=== PATIENT | female | born 1955 | race Caucasian/White ===

== ENCOUNTER 2017-06-28 05:40 | Inpatient (IN) | payer MEDICARE, OTHER ==
[~2017-06-28] VITALS: Ht 160 cm; Wt 68.7 kg
[2017-06-28] VITALS (12 sets, daily range): BP systolic 84–160; BP diastolic 44–88
[2017-06-28] MEDS ORDERED: DEXTROSE 50% 25 GM / 50ML DISP.SYRIN. IV PRN (08:45)
[2017-06-28] MEDS: INSULIN ASPART 300 UNITS/3 ML INSULN.PEN SQ SCH ×4 (09:29→21:24)
[2017-06-28 09:45] LABS: BASO # 0.1 x10^3/uL (0.0-0.2); BASO % 1 % (0-3); EOS # 0.1 x10^3/uL (0.0-0.7); EOS % 1 % (0-3); HEMATOCRIT 46.1 % (36.0-47.0); HEMOGLOBIN 15.9 g/dL (12.0-15.5); LYMPH # 2.7 x10^3/uL (1.0-4.8); LYMPH % 29 % (24-48); MEAN CORPUSCULAR HEMOGLOBIN 32 pg (25-35); MEAN CORPUSCULAR HGB CONC 35 g/dL (31-37); MEAN CORPUSCULAR VOLUME 93 fL (79-100); MONO # 0.7 x10^3/uL (0.0-1.1); MONO % 7 % (0-9); NEUT # 5.8 x10^3uL (1.8-7.7); NEUT % 62 % (31-73); PLATELET COUNT 288 x10^3/uL (140-400); RED BLOOD COUNT 4.94 x10^6/uL (3.50-5.40); RED CELL DISTRIBUTION WIDTH 13.7 % (11.5-14.5); WHITE BLOOD COUNT 9.3 x10^3/uL (4.0-11.0)
[2017-06-28 10:11] LABS: ALBUMIN 3.5 g/dL (3.4-5.0); ALBUMIN/GLOBULIN RATIO 0.9 (1.0-1.7); CALCIUM 9.2 mg/dL (8.5-10.1); CREATININE 0.9 mg/dL (0.6-1.0); GFR 63.9; MAGNESIUM 1.3 mg/dL (1.8-2.4); POTASSIUM 3.5 mmol/L (3.5-5.1); TOTAL BILIRUBIN 0.4 mg/dL (0.2-1.0); TOTAL PROTEIN 7.2 g/dL (6.4-8.2)
[2017-06-28] MEDS ORDERED: ROPI1TAB PO (10:49)
[2017-06-28] MEDS ORDERED: INSU100I17 SQ (10:49)
[2017-06-28] MEDS ORDERED: OMEP20TA63 PO (10:49)
[2017-06-28] MEDS ORDERED: LISI40TA PO (10:49)
[2017-06-28] MEDS ORDERED: ASPI325T8 PO (10:49)
[2017-06-28] MEDS ORDERED: FISH12002 PO (10:49)
[2017-06-28] MEDS ORDERED: CHOL500016 PO (10:49)
[2017-06-28] MEDS ORDERED: CARV3.12 PO (10:49)
[2017-06-28] MEDS ORDERED: METF10002 PO (10:49)
[2017-06-28] MEDS ORDERED: INSU100I13 SQ (10:49)
[2017-06-28] MEDS ORDERED: GABA600T2 PO (10:49)
[2017-06-28] MEDS ORDERED: OXYC-323 PO (10:49)
[2017-06-28] MEDS ORDERED: FENO134C PO (10:49)
[2017-06-28] MEDS ORDERED: ATOR40TA PO (11:02)
[2017-06-28 11:03] LABS: BILIRUBIN,URINE NEG (NEG); CLARITY,URINE CLOUDY; COLOR,URINE YELLOW; GLUCOSE,URINE 500 mg/dL (NEG)
[2017-06-28 11:04] LABS: BACTERIA,URINE 0 /HPF (0-FEW); NITRITE,URINE NEG (NEG); RBC,URINE 0 /HPF (0-2); SQUAMOUS EPITHELIAL CELL,UR OCC /LPF; UROBILINOGEN,URINE 0.2 mg/dL (0.2 mg/dL); YEAST,URINE PRESENT /HPF
[2017-06-28] MEDS ORDERED: ENOXAPARIN 40 MG/0.4 ML DISP.SYRIN. SQ SCH (12:00)
[2017-06-28] MEDS: CHOLECALCIFEROL (VITAMIN D3) 1,000 UNIT TABLET PO SCH (12:22)
[2017-06-28] MEDS: PANTOPRAZOLE 40 MG TABLET. PO SCH (12:22)
[2017-06-28] MEDS: OMEGA-3 FATTY ACIDS/FISH OIL 1,000 MG CAPSULE. PO SCH (12:23)
[2017-06-28] MEDS: ASPIRIN 325 MG TABLET PO SCH (12:23)
[2017-06-28] MEDS: CARVEDILOL 3.125 MG TABLET PO SCH ×2 (12:23→21:19)
[2017-06-28] MEDS: LISINOPRIL 20 MG TABLET PO SCH (12:24)
[2017-06-28] MEDS: IPRATRPIUM/ALBUTEROL 0.5/2.5MG 3 ML NEBU. NEB SCH ×3 (12:39→21:38)
[2017-06-28] MEDS ORDERED: MAGNESIUM SULFATE 2GM 50 ML IV ONE (13:00)
[2017-06-28] MEDS ORDERED: FUROSEMIDE 40 MG/4 ML VIAL IVP ONE (13:30)
--- NOTE | 2017-06-28 13:32 | EKG ---
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
[2017-06-28] MEDS: GABAPENTIN 300 MG CAPSULE. PO SCH ×2 (13:58→21:19)
[2017-06-28] MEDS ORDERED: cefTRIAXone IV Push 1 GM VIAL. IVP SCH ×2 (15:30→16:00)
[2017-06-28] MEDS: LORazepam 0.5 MG TABLET PO PRN (16:05)
--- NOTE | 2017-06-28 17:16 | RAD ---
Exam: AP portable chest History: Dyspnea. Comparison: April 10, 2015. Findings: Cardiac silhouette appears within normal limits for size. There is enlargement of the mediastinal contour, similar to previous study. Median sternotomy wires are present. No pneumothorax or large pleural effusion is seen. Pulmonary vascularity appears accentuated. Mild bibasilar densities are seen. Impression: 1. Pulmonary vascularity appears accentuated, suggesting pulmonary vascular congestion. 2. Bibasilar densities, could be atelectasis versus pneumonia. Electronically signed by: Sotero Olson MD (06/28/2017 5:12 PM) [facility]
[2017-06-28] MEDS: metFORMIN 500 MG TABLET PO SCH (17:25)
--- NOTE | 2017-06-28 17:39 | PDOC ---
PROVIDER NOTE PROVIDER NOTE PROVIDER NOTE Reason for consultation elevated troponin History of present illness Piper is a 61-year-old woman with past medical history as noted below who presents to the hospital the setting of chest discomfort and right sided pain. She has history of coronary artery disease status post bypass surgery and fell several weeks ago. She's had worsening pain and she had some pain yesterday which prompted evaluation in the ER. At an outside hospital her troponin was noted to be mildly elevated at 0.7. 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 Arroyo being at [facility] she was to be transferred here. From a purely cardiac standpoint she has not had any significant angina since her surgery. Denies any syncope, palpitations, orthopnea or PND. She reports compliance to medication. Upon initial arrival at the outside hospital her blood pressure was elevated to 174/90. Otherwise she's not had any significant hypertensive episodes. She reports compliance to medications. Pmhx Coronary artery disease status post three-vessel bypass 2. Hypertension 3. Dyslipidemia 4. Diabetes 5. Peripheral vascular disease Social history patient denies any current, tobacco or illicit drug use. Allergies to propoxyphene No significant family history Review systems is negative for 10 out of 14 systems reviewed also otherwise mentioned above in history of present illness. The patient appeared well nourished and normally developed. Head exam is unremarkable. No scleral icterus or corneal arcus noted. Neck is without jugular venous distension, thyromegaly, or carotid bruits. Carotid upstrokes are brisk bilaterally. Lungs are clear to auscultation and percussion. Cardiac exam reveals the PMI to be normally sized and situated. Rhythm is regular. First and second heart sounds normal. No murmurs, rubs or gallops. Abdominal exam reveals normal bowel sounds, no masses, no organomegaly and no aortic enlargement. Extremities are nonedematous. Msk: No traumua Neuro: No focal deficits Vital signs stable Diagnostic studies reviewed: Outside hospital CT scan revealed possible bilateral infiltrate/pneumonitis. There is bilateral pleural effusions. She's currently on Lasix therapy EKG is unremarkable for any acute findings. Repeat cardiac enzymes are notable for an elevation of 0.97. Impression: 1. Chest pain, atypical 2. Non-ST elevation myocardial infarction likely type II but cannot rule out underlying worsening atherosclerosis. 3. Hypertension 4. Dyslipidemia 5. Besxmblvbw-tjxb-wca disease Recommendations: 1. In light of the fact of the patient's troponin is continuing to elevate despite lack of any significant hypertensive episodes or renal failure it would be appropriate to rule out any occult worsening of her coronary disease. We will likely plan for a cardiac catheterization tomorrow when bed is available at [facility]. Thank you for this consultation. JALEESA NORTON MD Jun 28, 2017 17:39
[2017-06-28] MEDS ORDERED: ATORVASTATIN CALCIUM 20 MG TABLET PO SCH (21:00)
[2017-06-28] MEDS ORDERED: INSULIN DETEMIR 300 UNITS/3 ML INSULN.PEN. SQ SCH ×2 (21:00)
[2017-06-28] MEDS: LACTOBACILLUS RHAMNOSUS GG 1 CAPSULE. PO SCH (21:19)
[2017-06-29] MEDS: LORazepam 0.5 MG TABLET PO PRN (00:04)
[2017-06-29 00:24] VITALS: BP 115/64
[2017-06-29 02:16] VITALS: BP 132/90
[2017-06-29 03:46] VITALS: BP 131/68
[2017-06-29 05:08] VITALS: BP 106/78
[2017-06-29 05:45] VITALS: BP 98/47
[2017-06-29] MEDS: IPRATRPIUM/ALBUTEROL 0.5/2.5MG 3 ML NEBU. NEB SCH (06:10)
[2017-06-29 06:30] LABS: HEMATOCRIT 44.5 % (36.0-47.0); HEMOGLOBIN 15.2 g/dL (12.0-15.5); RED BLOOD COUNT 4.76 x10^6/uL (3.50-5.40); RED CELL DISTRIBUTION WIDTH 13.5 % (11.5-14.5); WHITE BLOOD COUNT 9.1 x10^3/uL (4.0-11.0)
[2017-06-29 06:50] LABS: ALBUMIN 3.1 g/dL (3.4-5.0); ALBUMIN/GLOBULIN RATIO 0.9 (1.0-1.7); CALCIUM 9.6 mg/dL (8.5-10.1); CREATININE 0.8 mg/dL (0.6-1.0); GFR 73.2; POTASSIUM 3.6 mmol/L (3.5-5.1); TOTAL BILIRUBIN 0.4 mg/dL (0.2-1.0); TOTAL PROTEIN 6.5 g/dL (6.4-8.2)
[2017-06-29] MEDS: INSULIN ASPART 300 UNITS/3 ML INSULN.PEN SQ SCH (07:30)
[2017-06-29] MEDS: metFORMIN 500 MG TABLET PO SCH (08:00)
[2017-06-29] MEDS: GABAPENTIN 300 MG CAPSULE. PO SCH (08:07)
[2017-06-29] MEDS: PANTOPRAZOLE 40 MG TABLET. PO SCH (08:07)
[2017-06-29] MEDS: LACTOBACILLUS RHAMNOSUS GG 1 CAPSULE. PO SCH (08:07)
[2017-06-29] MEDS: CHOLECALCIFEROL (VITAMIN D3) 1,000 UNIT TABLET PO SCH (08:07)
[2017-06-29] MEDS: ASPIRIN 325 MG TABLET PO SCH (08:07)
[2017-06-29 08:09] LABS: HEMOGLOBIN A1C 9.3 % (4.8-5.6)
[2017-06-29] MEDS: CARVEDILOL 3.125 MG TABLET PO SCH (08:11)
[2017-06-29] MEDS: LISINOPRIL 20 MG TABLET PO SCH (08:11)
[2017-06-29] MEDS: OMEGA-3 FATTY ACIDS/FISH OIL 1,000 MG CAPSULE. PO SCH (08:36)
[2017-06-29] MEDS ORDERED: FUROSEMIDE 40 MG/4 ML VIAL IVP SCH ×2 (09:00)
[2017-06-29] MEDS ORDERED: FENOFIBRATE NANOCRYSTALLIZED 145 MG TABLET PO SCH (09:00)
[2017-06-29 09:07] VITALS: BP 135/79
== END 2017-06-29 08:00 | disposition short-term general hospital (02) | DRG 281 ==
LOC: ICU 05:40
PROVIDERS: ADMIT Internal Medicine; ATTEND Internal Medicine
DX: I21.A1 Myocardial infarction type 2 (principal); J44.1 Chronic obstructive pulmonary disease with (acute) exacerbation; E11.21 Type 2 diabetes mellitus with diabetic nephropathy; E11.40 Type 2 diabetes mellitus with diabetic neuropathy, unspecified; E11.51 Type 2 diabetes mellitus with diabetic peripheral angiopathy without gangrene; I50.9 Heart failure, unspecified; F17.210 Nicotine dependence, cigarettes, uncomplicated; E11.65 Type 2 diabetes mellitus with hyperglycemia; L97.513 Non-pressure chronic ulcer of other part of right foot with necrosis of muscle; I11.0 Hypertensive heart disease with heart failure; R07.89 Other chest pain; E78.5 Hyperlipidemia, unspecified; I25.10 Atherosclerotic heart disease of native coronary artery without angina pectoris; Z91.81 History of falling; Z95.1 Presence of aortocoronary bypass graft; Z88.8 Allergy status to other drugs, medicaments and biological substances; Z90.89 Acquired absence of other organs; Z90.710 Acquired absence of both cervix and uterus; Z93.4 Other artificial openings of gastrointestinal tract status; Z89.431 Acquired absence of right foot; Z83.3 Family history of diabetes mellitus; Z82.49 Family history of ischemic heart disease and other diseases of the circulatory system; Z83.2 Family history of diseases of the blood and blood-forming organs and certain disorders involving the immune mechanism
CPT/HCPCS: 36415; 71045; 80053; 81001; 82553; 82947; 83036; 83735; 84484; 85025; 85027; 87641; 93005; 94640; J0696; J1650; J1815; J1940; J3475; J7620

== ENCOUNTER 2017-12-28 15:52 | Emergency (ER) | payer MEDICARE ==
[~2017-12-28] VITALS: Ht 160 cm; Wt 67.1 kg
[2017-12-28 16:04] VITALS: BP 142/82
[2017-12-28] MEDS ORDERED: INSULIN REGULAR 100 UNIT/ML 3ML VIAL. IV ONE (16:15)
[2017-12-28] MEDS ORDERED: IV NORMAL SALINE 1,000ML 1,000 ML IV ONE ×2 (16:15→17:30)
--- NOTE | 2017-12-28 16:24 | PHYS DOC ---
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 Patient has had some blurry vision and does occasionally bump into things But no recent fever no chest pain no dysuria she does have urinary frequency Review of Systems Review of Systems Constitutional: Denies fever or chills [] Eyes: Denies change in visual acuity, redness, or eye pain [] HENT: Denies nasal congestion or sore throat [] maturia [] Musculoskeletal: Denies back pain or joint pain [] Integument: Denies rash or skin lesions [] Neurologic: Denies headache, focal weakness or sensory changes [] Endocrine: Stop Lantus a while back All other systems were reviewed and found to be within normal limits, except as documented in this note. Current Medications Current Medications Current Medications Medications (Trade) Dose Ordered Sig/Librado Start Time Stop Time Status Last Admin Dose Admin Insulin Human Regular (HumuLIN R VIAL) 10 unit 1X ONCE 12/28/17 16:15 12/28/17 16:16 DC Sodium Chloride 1,000 ml @ 1,000 mls/hr 1X ONCE 12/28/17 16:15 12/28/17 17:14 Allergies Allergies Allergies Coded Allergies Type Severity Reaction Last Updated Verified propoxyphene Allergy Intermediate 06/28/17 Yes Physical Exam Physical Exam Constitutional: Well developed, well nourished, no acute distress, non-toxic appearance. [] HENT: Normocephalic, atraumatic, bilateral external ears normal, oropharynx dry no oral exudates, nose normal. [] Eyes: PERRLA, EOMI, conjunctiva normal, no discharge. [] Neck: Normal range of motion, no tenderness, supple, no stridor. [] Cardiovascular:Heart rate regular rhythm, no murmur [] Lungs & Thorax: Bilateral breath sounds clear to auscultation [] Abdomen: Bowel sounds normal, soft, no tenderness, no masses, no pulsatile masses. [] Skin: Warm, dry, no erythema, no rash. [] Back: No tenderness, no CVA tenderness. [] Extremities: No tenderness, no cyanosis, no clubbing, ROM intact, no edema. [] Neurologic: Alert and oriented X 3, normal motor function, normal sensory function, no focal deficits noted. [] Psychologic: Affect normal, judgement normal, mood normal. [] EKG EKG [] Radiology/Procedures Radiology/Procedures [] Course & Med Decision Making Course & Med Decision Making Pertinent Labs and Imaging studies reviewed. (See chart for details) []Hyperglycemia reviewed the lab work that was just done at the outpatient clinic and there was no anion gap the potassium is 4.5 the creatinine is 1.4 mild bump from baseline of 0.9 in addition to sodium is 127 likely pseudohyponatremia patient receives IV fluids as well as IV insulin in the emergency room and we rechecked her blood sugar and it did come down. advised to see pmd for refill on lantus she probably needs to take it again Patient was given IV fluids in the emergency room as well as a total of 15 units of regular insulin the blood sugar did come down to 310. She remained fairly asymptomatic in the emergency room she said she was actually feeling somewhat better. I did advise her to call her primary care doctor tomorrow to get reinitiated on her insulin. She is agreeable I also encouraged her to have a good healthy protein meal this evening because we did give her a fair amount of insulin. Dragon Disclaimer Dragon Disclaimer This electronic medical record was generated, in whole or in part, using a voice recognition dictation system. Departure Departure: Impression: Primary Impression: Hyperglycemia Disposition: 01 HOME, SELF-CARE Condition: STABLE Referrals: BEVERLY FORD MD (PCP) BUDDY ASENCIO MD Dec 28, 2017 16:24
[2017-12-28] MEDS ORDERED: INSULIN REGULAR 100 UNIT/ML 10ML VIAL. IV ONE (17:30)
[2017-12-28 17:44] LABS: BILIRUBIN,URINE NEG (NEG); CLARITY,URINE CLEAR; COLOR,URINE YELLOW; GLUCOSE,URINE >=1000 mg/dL (NEG); NITRITE,URINE NEG (NEG); UROBILINOGEN,URINE 0.2 mg/dL (0.2 mg/dL)
[2017-12-28 17:51] LABS: BACTERIA,URINE 0 /HPF (0-FEW); RBC,URINE RARE /HPF (0-2); SQUAMOUS EPITHELIAL CELL,UR FEW /LPF; WBC,URINE OCC /HPF (0-4)
== END 2017-12-28 18:07 | disposition home or self-care (01) ==
LOC: ER 15:52
DX: R73.9 Hyperglycemia, unspecified (principal); H53.8 Other visual disturbances; Z88.8 Allergy status to other drugs, medicaments and biological substances
CPT/HCPCS: 81001; 82947; 96374; 96376; 99284; J1815; J7030

== ENCOUNTER → 2017-12-28 | Outpatient (CLI) | payer MEDICARE ==
[~2017-12-28] MED LIST: ASPI325T8 PO; ATOR40TA PO; CARV3.12 PO; CHOL500016 PO; FENO134C PO; FISH12002 PO; GABA600T2 PO; INSU100I13 SQ; INSU100I17 SQ; LISI40TA PO; METF10003 PO; OMEP20TA63 PO; OXYC-323 PO; ROPI1TAB PO
[2017-12-28 14:30] LABS: BASO # 0.1 x10^3/uL (0.0-0.2); BASO % 1 % (0-3); EOS # 0.1 x10^3/uL (0.0-0.7); EOS % 0 % (0-3); HEMATOCRIT 40.8 % (36.0-47.0); HEMOGLOBIN 13.8 g/dL (12.0-15.5); LYMPH # 1.9 x10^3/uL (1.0-4.8); LYMPH % 17 % (24-48); MEAN CORPUSCULAR HEMOGLOBIN 31 pg (25-35); MEAN CORPUSCULAR HGB CONC 34 g/dL (31-37); MEAN CORPUSCULAR VOLUME 92 fL (79-100); MONO # 0.6 x10^3/uL (0.0-1.1); MONO % 5 % (0-9); NEUT # 9.1 x10^3uL (1.8-7.7); NEUT % 77 % (31-73); PLATELET COUNT 318 x10^3/uL (140-400); RED BLOOD COUNT 4.41 x10^6/uL (3.50-5.40); RED CELL DISTRIBUTION WIDTH 12.3 % (11.5-14.5); WHITE BLOOD COUNT 11.8 x10^3/uL (4.0-11.0)
[2017-12-28 14:43] LABS: ALBUMIN 3.5 g/dL (3.4-5.0); ALBUMIN/GLOBULIN RATIO 0.8 (1.0-1.7); CALCIUM 9.7 mg/dL (8.5-10.1); CREATININE 1.4 mg/dL (0.6-1.0); GFR 38.2; MAGNESIUM 1.8 mg/dL (1.8-2.4); POTASSIUM 4.5 mmol/L (3.5-5.1); TOTAL BILIRUBIN 0.5 mg/dL (0.2-1.0); TOTAL PROTEIN 7.8 g/dL (6.4-8.2)
== END | disposition home or self-care (01) ==
LOC: LAB 14:04
PROVIDERS: ATTEND Internal Medicine Cardiovascular Disease
DX: I25.10 Atherosclerotic heart disease of native coronary artery without angina pectoris (principal); E78.5 Hyperlipidemia, unspecified; I13.0 Hypertensive heart and chronic kidney disease with heart failure and stage 1 through stage 4 chronic kidney disease, or unspecified chronic kidney disease; E11.22 Type 2 diabetes mellitus with diabetic chronic kidney disease; I50.9 Heart failure, unspecified; N18.1 Chronic kidney disease, stage 1
CPT/HCPCS: 36415; 80053; 83735; 85025

== ENCOUNTER → 2018-11-30 | Outpatient (CLI) | payer MEDICARE ==
[2018-02-21 12:34] VITALS: BP 130/80
[~2018-11-30] MED LIST changes: -GABA600T2 PO; +GABA600T7 PO; -METF10003 PO; +METF10007 PO; -OXYC-323 PO; +OXYC1TAB15 PO
[2018-11-30 08:25] LABS: BASO % 0 % (0-3); EOS # 0.1 x10^3/uL (0.0-0.7); EOS % 2 % (0-3); HEMOGLOBIN 13.7 g/dL (12.0-15.5); LYMPH # 2.7 x10^3/uL (1.0-4.8); LYMPH % 36 % (24-48); MEAN CORPUSCULAR HEMOGLOBIN 31 pg (25-35); MEAN CORPUSCULAR HGB CONC 34 g/dL (31-37); MEAN CORPUSCULAR VOLUME 90 fL (79-100); MONO # 0.5 x10^3/uL (0.0-1.1); MONO % 6 % (0-9); NEUT # 4.2 x10^3uL (1.8-7.7); NEUT % 56 % (31-73); PLATELET COUNT 351 x10^3/uL (140-400); RED BLOOD COUNT 4.45 x10^6/uL (3.50-5.40); RED CELL DISTRIBUTION WIDTH 12.2 % (11.5-14.5); WHITE BLOOD COUNT 7.6 x10^3/uL (4.0-11.0)
[2018-11-30 08:30] LABS: ALBUMIN 3.5 g/dL (3.4-5.0); CALCIUM 9.5 mg/dL (8.5-10.1); DIRECT BILIRUBIN 0.1 mg/dL (0.0-0.2); GFR 56.2; MAGNESIUM 1.4 mg/dL (1.8-2.4); POTASSIUM 4.2 mmol/L (3.5-5.1); TOTAL BILIRUBIN 0.4 mg/dL (0.2-1.0); TOTAL PROTEIN 7.7 g/dL (6.4-8.2)
[2018-12-01 10:08] LABS: HEMOGLOBIN A1C 9.7 % (4.8-5.6)
== END | disposition home or self-care (01) ==
LOC: LAB 07:44
PROVIDERS: ATTEND Internal Medicine Cardiovascular Disease
DX: I25.10 Atherosclerotic heart disease of native coronary artery without angina pectoris (principal); I10 Essential (primary) hypertension; E11.9 Type 2 diabetes mellitus without complications; R10.9 Unspecified abdominal pain
CPT/HCPCS: 36415; 80048; 80061; 80076; 83036; 83735; 85025

== ENCOUNTER → 2018-12-04 | Outpatient (CLI) | payer MEDICARE ==
[2018-02-21 12:34] VITALS: BP 130/80
--- NOTE | 2018-12-04 09:57 | RAD ---
Examination: Ultrasound abdomen complete HISTORY: History of abdominal pain COMPARISON: None available FINDINGS: The pancreas, aorta, IVC are not well-visualized. Small echogenicity identified within the gallbladder probably a gallstone. The gallbladder wall thickness is within normal limits. The common bile duct measures 7 mm in transverse dimension. The echogenicity liver grossly appears unremarkable. The right lobe of the liver measures 18 cm. The spleen measures 10.6 cm in length. The right kidney is 11.3 cm in length. The left kidney measures 10.9 cm in length. IMPRESSION: 1. Cholelithiasis. Minimal prominent appearing common bile duct. If there is clinical suspicion for common bile duct pathology, consider MRCP for further evaluation. Electronically signed by: Bong Cabrera MD (12/04/2018 9:54 AM) [facility]
== END | disposition home or self-care (01) ==
LOC: US 07:32
PROVIDERS: ATTEND Internal Medicine Cardiovascular Disease
DX: K80.20 Calculus of gallbladder without cholecystitis without obstruction (principal)
CPT/HCPCS: 76700

== ENCOUNTER → 2019-09-14 | Outpatient (CLI) | payer MEDICARE ==
[2018-02-21 12:34] VITALS: BP 130/80
[2019-09-14 11:50] LABS: BASO % 1 % (0-3); EOS # 0.1 x10^3/uL (0.0-0.7); EOS % 1 % (0-3); HEMATOCRIT 36.2 % (36.0-47.0); HEMOGLOBIN 12.3 g/dL (12.0-15.5); LYMPH % 23 % (24-48); MEAN CORPUSCULAR HEMOGLOBIN 31 pg (25-35); MEAN CORPUSCULAR HGB CONC 34 g/dL (31-37); MEAN CORPUSCULAR VOLUME 92 fL (79-100); MONO # 0.5 x10^3/uL (0.0-1.1); MONO % 5 % (0-9); NEUT # 6.1 x10^3uL (1.8-7.7); NEUT % 70 % (31-73); PLATELET COUNT 381 x10^3/uL (140-400); RED BLOOD COUNT 3.95 x10^6/uL (3.50-5.40); RED CELL DISTRIBUTION WIDTH 13.2 % (11.5-14.5); WHITE BLOOD COUNT 8.7 x10^3/uL (4.0-11.0)
[2019-09-14 12:01] LABS: ALBUMIN 3.6 g/dL (3.4-5.0); CALCIUM 9.7 mg/dL (8.5-10.1); GFR 56.2; POTASSIUM 4.6 mmol/L (3.5-5.1); TOTAL BILIRUBIN 0.3 mg/dL (0.2-1.0)
== END ==
LOC: LAB 11:10
PROVIDERS: ATTEND Surgery
DX: K80.20 Calculus of gallbladder without cholecystitis without obstruction (principal)
CPT/HCPCS: 36415; 80048; 82040; 82247; 85025

== ENCOUNTER → 2020-03-17 | Outpatient (CLI) | payer MEDICARE ==
[2018-02-21 12:34] VITALS: BP 130/80
--- NOTE | 2020-03-17 09:06 | RAD ---
Exam: VENOUS LOWER EXT BILATERAL Indication: BLE EDEMA / Spl. Instructions: / History: Technique: Color-flow and pulsed wave duplex ultrasound with compression of venous structures of the bilateral lower extremities. Comparison: None Available. Findings: Eccentric partially occlusive thrombus in the right peroneal vein. Elsewhere throughout the bilateral lower extremities, duplex ultrasound with compression of the deep venous structures from the common femoral vein through the popliteal vein is negative for DVT. The posterior tibial veins are segmentally visualized and patent where seen. Impression: Eccentric partially occlusive thrombus in the right peroneal vein, which could be chronic. Electronically signed by: Alex Knutson MD (03/17/2020 9:03 AM) [id number]
== END ==
LOC: US 08:09
PROVIDERS: ATTEND Internal Medicine Cardiovascular Disease
DX: I82.551 Chronic embolism and thrombosis of right peroneal vein (principal); R60.0 Localized edema
CPT/HCPCS: 93970

== ENCOUNTER → 2020-10-15 | Day surgery (SDC) | payer MEDICARE ==
[~2020-10-15] MED LIST changes: +ACETAMINOPHEN 500 MG TABLET PO PRN; +APIX5TAB3 PO; +ASCO500C PO; +ASPI-630 PO; +BALANCED SALT IRRIG SOLN NO.2 500 ML IO ONE; +BENZONATATE 100 MG CAPSULE. PO PRN; +BRIMONIDINE 0.2% OPHTH SOLUTION 5ML BOTTLE. OS ONE; +CEFUROXIME OPHTH 4 MG/0.4 ML SYRINGE. OS ONE; +CHONDROIT-SOD-HYALURONATE KIT. OS ONE; +GABA-586 PO; +IPRATRPIUM/ALBUTEROL 0.5/2.5MG 3 ML NEBU. NEB PRN; +IV RINGERS SOLUTION,LACTATED 1,000 ML IV SCH; +LIDO/EPI IN BSS OPHTH 2.7 ML SYRINGE. OS ONE; +LIDOCAINE 2% JELLY 6ML IN APPLICATOR. ONE; -LISI40TA PO; +LISI40TA6 PO; +MIDAZOLAM HCL PF 2 MG/2 ML VIAL. IV ONE; +MIDAZOLAM HCL PF 2 MG/2 ML VIAL. ONE; +ONDANSETRON PF 4 MG/2 ML VIAL. IV PRN; +PHENYLEPHRINE 10% OPHTH SOLUTION 5ML BOTTLE. OS PRN; +POVIDONE-IODINE 5% OPHTH SOLUTION 30ML BOTTLE. OS ONE; +POVIDONE-IODINE 5% OPHTH SOLUTION 30ML BOTTLE. OS PRN; +PROPARACAINE 0.5% OPHTH SOLUTION 15ML BOTTLE. OS ONE; +PROPARACAINE 0.5% OPHTH SOLUTION 15ML BOTTLE. OS PRN; +RANO500T2 PO; +prednisoLONE ACETATE 1% OPHTH SUSPENSION 5ML BOTTLE. OS ONE
[2020-10-15] MEDS: KETOROLAC TROMETHAMINE 0.5% OPHTH SOLUTION BOTTLE. OS SCH ×2 (10:33→10:38)
[2020-10-15] MEDS: TOBRAMYCIN 0.3% OPHTH SOLUTION 5ML BOTTLE. OS SCH ×2 (10:33→10:38)
[2020-10-15] MEDS: PHENYLEPHRINE 2.5% OPHTH SOLUTION 2ML BOTTLE. OS SCH ×3 (10:33→10:42)
[2020-10-15] MEDS: TROPICAMIDE 1% OPHTH SOLUTION 15ML BOTTLE. OS SCH ×3 (10:33→10:42)
[2020-10-15] MEDS: POVIDONE-IODINE 5% OPHTH SOLUTION 30ML BOTTLE. OS ONE ×2 (11:56→12:10)
--- NOTE | 2020-10-15 12:11 | PDOC4 ---
SURGEON: Roddy Gomez MD Date of Procedure: 10/15/20 PREOP Diagnosis Visually significant cataract: Left Eye OS POSTOP Diagnosis Same PROCEDURE: Phaco w/ posterior chamber IOL: Left Eye OS ANESTHESIA Deep forniceal periocular 2% Lidocaine jelly Dulce/retro bulbar block with 2% Lidocaine with 0.5% Marcaine DESCRIPTION OF PROCEDURE The risks, benefits, and alternatives were discussed with the patient who elected to proceed. Informed consent was obtained in writing and placed in the chart After anesthetizing the eye topically, the patient was taken to the operating room, and the operative eye was prepped and draped in the usual sterile fashion for ocular surgery. A wire lid speculum was placed. A 1-mm clear corneal paracentesis incision was created with the side-port blade at a position three o'clock hours clockwise from the temporal cornea. Then, 1% non-preserved Lidocaine with epinephrine was injected into the anterior chamber followed by viscoelastic. Cotton-tipped applicators were used to stabilize the globe, and a 2.4 mm keratome was used to create a self-sealing incision in clear cornea at the temporal limbus. The Utrata forceps were used to create a continuous curvilinear capsulorrhexis. Balanced saline solution was injected via cannula beneath the capsulorrhexis edge to hydrodissect the lens nucleus and cortex from the lens capsule. The phacoemulsification handpiece and a chopping instrument were then used to remove the lens nucleus. The remaining epinuclear material and cortex were removed with the irrigation/aspiration handpiece. Visc oelastic was used to re-inflate the lens capsule, and the intraocular lens was injected directly into the capsular bag. The corneal wound edges were hydrated with balanced salt solution on a cannula and the irrigation/aspiration handpiece was used to extract the remaining viscoelastic. Cefuroxime 0.1mg/ml / Vigamox 0.5% was injected into the anterior chamber intracamerally. The wounds were inspected and found to be watertight at an appropriate intraocular pressure. Topical antibiotic drops were placed on the corneal surface. LRI: No If Yes, Number [] [place] [] Length [] degrees Depth [] microns Incision [place]: 180 Toric Lens [place] [] Patch/shield with Maxitrol/Tobradex/Erythromycin ointment: Yes No Co-managed patients/postop examination stable for co-management with referring doctor. EBL EBL: None SPECIMANS COLLECTED Specimens Collected: None RODDY GOMEZ MD October 15, 2020 12:11
[2020-10-15 12:22] VITALS: BP 139/62
== END | disposition home or self-care (01) ==
LOC: SURG 10:03
PROVIDERS: ATTEND Ophthalmology
DX: E11.36 Type 2 diabetes mellitus with diabetic cataract (principal); H25.12 Age-related nuclear cataract, left eye; K21.9 Gastro-esophageal reflux disease without esophagitis; E78.00 Pure hypercholesterolemia, unspecified; I25.10 Atherosclerotic heart disease of native coronary artery without angina pectoris; G62.9 Polyneuropathy, unspecified; I13.0 Hypertensive heart and chronic kidney disease with heart failure and stage 1 through stage 4 chronic kidney disease, or unspecified chronic kidney disease; E11.22 Type 2 diabetes mellitus with diabetic chronic kidney disease; N18.1 Chronic kidney disease, stage 1; I50.9 Heart failure, unspecified; Z79.82 Long term (current) use of aspirin; Z88.8 Allergy status to other drugs, medicaments and biological substances; Z83.3 Family history of diabetes mellitus; Z79.899 Other long term (current) drug therapy; Z98.890 Other specified postprocedural states; Z79.4 Long term (current) use of insulin; Z95.1 Presence of aortocoronary bypass graft; Z90.710 Acquired absence of both cervix and uterus; Z90.89 Acquired absence of other organs; Z91.81 History of falling; Z82.49 Family history of ischemic heart disease and other diseases of the circulatory system; Z83.2 Family history of diseases of the blood and blood-forming organs and certain disorders involving the immune mechanism
CPT/HCPCS: 66984; 82947; J2250; V2632

== ENCOUNTER 2020-12-31 23:42 | Inpatient (IN) | payer MEDICARE ==
[~2020-12-31] VITALS: Ht 167.6 cm; Wt 68.2 kg
[~2020-12-31 23:42] MED LIST changes: -ACETAMINOPHEN 500 MG TABLET PO PRN; -BALANCED SALT IRRIG SOLN NO.2 500 ML IO ONE; -BENZONATATE 100 MG CAPSULE. PO PRN; -BRIMONIDINE 0.2% OPHTH SOLUTION 5ML BOTTLE. OS ONE; -CEFUROXIME OPHTH 4 MG/0.4 ML SYRINGE. OS ONE; -CHONDROIT-SOD-HYALURONATE KIT. OS ONE; -IPRATRPIUM/ALBUTEROL 0.5/2.5MG 3 ML NEBU. NEB PRN; -IV RINGERS SOLUTION,LACTATED 1,000 ML IV SCH; -LIDO/EPI IN BSS OPHTH 2.7 ML SYRINGE. OS ONE; -LIDOCAINE 2% JELLY 6ML IN APPLICATOR. ONE; -MIDAZOLAM HCL PF 2 MG/2 ML VIAL. IV ONE; -MIDAZOLAM HCL PF 2 MG/2 ML VIAL. ONE; -ONDANSETRON PF 4 MG/2 ML VIAL. IV PRN; -PHENYLEPHRINE 10% OPHTH SOLUTION 5ML BOTTLE. OS PRN; -POVIDONE-IODINE 5% OPHTH SOLUTION 30ML BOTTLE. OS ONE; -POVIDONE-IODINE 5% OPHTH SOLUTION 30ML BOTTLE. OS PRN; -PROPARACAINE 0.5% OPHTH SOLUTION 15ML BOTTLE. OS ONE; -PROPARACAINE 0.5% OPHTH SOLUTION 15ML BOTTLE. OS PRN; -prednisoLONE ACETATE 1% OPHTH SUSPENSION 5ML BOTTLE. OS ONE
--- NOTE | 2020-12-31 23:47 | PHYS DOC ---
Past History Past Medical History: Anemia, Angina, Arthritis, Arrhythmia, CHF, Diabetes, Hypertension, Vascular Disease Past Surgical History: Coronary Bypass Surgery Alcohol Use: None Drug Use: None General Adult HPI: HPI: ",, I...can't...get .... Enough... I probably'... Need some... BiPAP......they.. did..that ..,,.,.before... .." .. Patient is a 65 year old female who presents with above hx and complaints of severe dyspnea. Patient only able to speak in 1-2 word phrases because of d yspnea. Patient reports acute onset of dyspnea and chest discomfort tonight. Patient has had previous episodes such such as this due cardiac pulmonary failure and pulmonary edema. Patient denies any recent changes in meds. Normally follows with Dr. Ford as a primary. Has follow- with Dr. Childs for cardiology in past. Patient has past medical history of coronary artery disease with three-vessel bypass. Anemia hypertension, dyslipidemia, diabetes, peripheral vascular disease, and myocardial infarctions. Patient placed on BiPAP shortly after arrival to the emergency department. Which improved her overall comfort and saturations. Patient required pressures 18/10 to achieve adequate tidal volumes. No recent travel or specific ill contacts. No history immunosuppression. Pt. has had Covid vaccination x2 with Moderna completed in August. Review of Systems: Review of Systems: Constitutional: Denies fever or chills Eyes: Denies change in visual acuity HENT: Denies nasal congestion or sore throat Respiratory: Complains of cough or shortness of breath Cardiovascular: Denies chest pain or edema GI: Denies abdominal pain, nausea, vomiting, bloody stools. Recent history diarrhea : Denies dysuria Musculoskeletal: Denies back pain or joint pain Integument: Denies rash Neurologic: Denies headache, focal weakness or sensory changes Endocrine: Denies polyuria or polydipsia Lymphatic: Denies swollen glands Psychiatric: Denies depression or anxiety Family History: Family History: Not currently available due to patient's respiratory failure Current Medications: Current Meds: See nursing for home meds Allergies: Allergies: Allergies Coded Allergies Type Severity Reaction Last Updated Verified propoxyphene Allergy Intermediate 06/28/17 Yes Physical Exam: PE: Constitutional: In acute respiratory distress, in obvious respiratory failure . HENT: Normocephalic, atraumatic, bilateral external ears normal, oropharynx moist, no oral exudates, nose normal. [] Eyes: PERRLA, EOMI, conjunctiva normal, no discharge. [] Neck: Normal range of motion, no tenderness, supple, no stridor. JVD in sitting position Cardiovascular: Tachycardia heart rate regular rhythm, no murmur, PMI to the left Lungs & Thorax: Bilateral breath sounds equal apex with crackles and wheezing throughout on auscultation [] old surgical scar Abdomen: Bowel sounds decreased, soft, no tenderness, no masses, no pulsatile masses. Obese Skin: Warm, diaphoretic, no erythema, no rash. Poor turgor Back: No tenderness, no CVA tenderness. [] Extremities: No tenderness, no cyanosis, no clubbing, ROM intact, ankle edema. No cording appreciated Neurologic: Alert and oriented X 3, moves extremities on request, appears to have distal sensory but decreased and lower limbs, no gross focal deficits noted. [] Psychologic: Affect anxious/panic, judgement appropriate once the airway and ventilation stabilized, mood normal. [] EKG: EKG: My interpretation EKG shows a sinus rhythm at 91 bpm. Does have a occasional premature atrial complexes. Does have an anterior septal changes and abdominal contours. Abnormal EKG time of EKG was 0 07 minutes [] Radiology/Procedures: Radiology/Procedures: [][place] [address] IMAGING REPORT Signed PATIENT: ASHLEY CASANOVA ACCOUNT: [id number] : 1955 LOCATION: ER AGE: 65 SEX: F EXAM STATUS: REG ER ORD. PHYSICIAN: KATIE SYED MD REASON: dyspnea PROCEDURE: PORTABLE CHEST 1V XR CHEST 1V INDICATION: Reason: dyspnea / Spl. Instructions: / History: . COMPARISON STUDY: None. FINDINGS: Lungs: Normal lung volume. The perihilar and basilar heterogeneous opacities. Indistinct central vasculature. Pleura: No pleural effusion or pneumothorax. Heart and Mediastinum: Cardiomegaly. The great vessels of the thorax are normal. Median sternotomy. IMPRESSION: Bilateral perihilar and basilar opacities, probably interstitial edema or infection. Electronically signed by: Caroline Knutson MD (01/01/2021 1:01 AM) [facility] DICTATED AND SIGNED BY: CAROLINE KNUTSON MD DATE: 01/01/21 0059 CC: KATIE SYED MD; BEVERLY FORD MD ~MTH0 0 Heart Score: C/O Chest Pain: Yes HEART Score for Chest Pain: HEART Score for Chest Pain Response (Comments) Value History Moderately Suspicious 1 ECG Nonspecific Repolarizatio 1 Age >45 - < 65 1 Risk Factors 1 or 2 Risk Factors 1 Troponin < Normal Limit 0 Total 4 Risk Factors: Risk Factors: DM, Current or recent (<one month) smoker, HTN, HLP, family history of CAD, obesity. Risk Scores: Score 0 - 3: 2.5% MACE over next 6 weeks - Discharge Home Score 4 - 6: 20.3% MACE over next 6 weeks - Admit for Clinical Observation Score 7 - 10: 72.7% MACE over next 6 weeks - Early Invasive Strategies Course & Med Decision Making: Course & Med Decision Making Pertinent Labs and Imaging studies reviewed. (See chart for details) Critical care 90 minutes Discussed presentation, testing and treatment plan with Dr. Penny. Advised to give her additional 80 mg of Lasix IV, and admit to his service.ICU. Impression: 1. Acute pulmonary edema/CHF-BNP 5151 2. Leukocytosis 11.3 3. Anemia hemoglobin 7.6 4. Diabetes= glucose 219 5. Elevated D-dimer 2.31 6. Elevated lactic acid 3.0 7. Malnutrition albumin 2.3 8. History of coronary artery disease 9. Hx. Diarrhea past week [] Dragon Disclaimer: Dragon Disclaimer: This electronic medical record was generated, in whole or in part, using a voice recognition dictation system. Departure Departure: Referrals: BEVERLY FORD MD (PCP) [place] Disclaimer This chart was dictated in whole or in part using Voice Recognition software in a busy, high-work load, and often noisy Emergency Department environment. It may contain unintended and wholly unrecognized errors or omissions. KATIE SYED MD Dec 31, 2020 23:47
[2021-01-01] VITALS (11 sets, daily range): BP systolic 130–145; BP diastolic 50–69
[2021-01-01] MEDS ORDERED: ASPIRIN CHEWABLE 81 MG TABLET. PO ONE
[2021-01-01] MEDS ORDERED: IPRATRPIUM/ALBUTEROL 0.5/2.5MG 3 ML NEBU. NEB ONE
[2021-01-01] MEDS ORDERED: FUROSEMIDE 40 MG/4 ML VIAL IVP ONE ×2 (00:15→02:30)
--- NOTE | 2021-01-01 01:03 | RAD ---
XR CHEST 1V INDICATION: Reason: dyspnea / Spl. Instructions: / History: . COMPARISON STUDY: None. FINDINGS: Lungs: Normal lung volume. The perihilar and basilar heterogeneous opacities. Indistinct central vasc ulature. Pleura: No pleural effusion or pneumothorax. Heart and Mediastinum: Cardiomegaly. The great vessels of the thorax are normal. Median sternotomy. IMPRESSION: Bilateral perihilar and basilar opacities, probably interstitial edema or infection. Electronically signed by: Alex Knutson MD (01/01/2021 1:01 AM) [facility]
[2021-01-01 01:20] LABS: ALBUMIN 2.5 g/dL (3.4-5.0); CALCIUM 9.5 mg/dL (8.5-10.1); CREATININE 1.2 mg/dL (0.6-1.0); DIRECT BILIRUBIN 0.1 mg/dL (0.0-0.2); GFR 45.2; MAGNESIUM 1.5 mg/dL (1.8-2.4); POTASSIUM 4.7 mmol/L (3.5-5.1); TOTAL BILIRUBIN 0.3 mg/dL (0.2-1.0); TOTAL PROTEIN 7.9 g/dL (6.4-8.2)
[2021-01-01 01:24] LABS: BASO # 0.1 x10^3/uL (0.0-0.2); BASO % 1 % (0-3); EOS # 0.1 x10^3/uL (0.0-0.7); EOS % 1 % (0-3); HEMATOCRIT 23.5 % (36.0-47.0); HEMOGLOBIN 7.6 g/dL (12.0-15.5); LYMPH # 1.1 x10^3/uL (1.0-4.8); LYMPH % 10 % (24-48); MEAN CORPUSCULAR HEMOGLOBIN 28 pg (25-35); MEAN CORPUSCULAR HGB CONC 32 g/dL (31-37); MEAN CORPUSCULAR VOLUME 87 fL (79-100); MONO # 0.8 x10^3/uL (0.0-1.1); MONO % 7 % (0-9); NEUT # 9.3 x10^3uL (1.8-7.7); NEUT % 82 % (31-73); PLATELET COUNT 479 x10^3/uL (140-400); RED BLOOD COUNT 2.71 x10^6/uL (3.50-5.40); RED CELL DISTRIBUTION WIDTH 13.7 % (11.5-14.5); WHITE BLOOD COUNT 11.3 x10^3/uL (4.0-11.0)
[2021-01-01 01:35] LABS: BACTERIA,URINE 0 /HPF (0-FEW); BILIRUBIN,URINE NEG (NEG); CLARITY,URINE CLEAR; COLOR,URINE YELLOW; GLUCOSE,URINE NEG (NEG); NITRITE,URINE NEG (NEG); UROBILINOGEN,URINE 0.2 mg/dL (0.2 mg/dL); WBC,URINE OCC /HPF (0-4)
[2021-01-01] MEDS ORDERED: ONDANSETRON PF 4 MG/2 ML VIAL. IVP PRN (02:30)
[2021-01-01] MEDS ORDERED: ACETAMINOPHEN 325 MG TABLET PO PRN (02:30)
--- NOTE | 2021-01-01 03:45 | NUR ---
Pt admitted from ER to ICU bed 3 via [facility], accompanied by EMS and nursing staff. Pt transferred from [facility] to bed x 3 assist. Pt here for c/o SOA and CHF. Pt was on Bipap in ER, received IV Lasix and feeling much better now. Pt now on 3L NC with O2 Sats 96-99%. Admission assessment completed. Pt A&Ox4, very pleasant and cooperative. Health history and home medications reviewed with pt. Pt with chronic right foot wound, dressing changed & pictures taken and placed in chart. Pt normally is seen by [facility] wound care twice weekly. Wound care consulted, along with CM and Diet. Pt with Terry catheter in place from ER, 750cc of clear yellow urine noted. Pt lives at home with . Pt UTD on Covid vaccine. POC reviewed with pt, understanding verbalized. Call light within reach.
[2021-01-01] MEDS ORDERED: HYDR-2155 PO (04:43)
[2021-01-01] MEDS ORDERED: LISI-517 PO (04:43)
[2021-01-01] MEDS ORDERED: FURO40TA4 PO (04:43)
[2021-01-01] MEDS ORDERED: ZOLP10TA PO (04:43)
[2021-01-01] MEDS ORDERED: AMOX1TAB10 PO (04:43)
[2021-01-01] MEDS ORDERED: OMEP40CA7 PO (04:43)
[2021-01-01] MEDS ORDERED: DICL100G28 TP (04:43)
[2021-01-01] MEDS ORDERED: AMLO-186 PO (04:43)
[2021-01-01] MEDS: IPRATRPIUM/ALBUTEROL 0.5/2.5MG 3 ML NEBU. NEB SCH ×4 (08:00→18:26)
--- NOTE | 2021-01-01 08:58 | HP ---
ADMIT DATE: 01/01/2021 ATTENDING PHYSICIAN: Dr. Penny. CHIEF COMPLAINT: Shortness of breath. HISTORY OF PRESENT ILLNESS: The patient is a 65-year-old female admitted through the ED with worsening dyspnea, orthopnea and shortness of breath for the last several days. She had no recent travel, COVID exposure or fevers. She was given BiPAP, diurese and was doing better. Chest x-ray demonstrated vascular congestion, cephalization of vessels and cardiomegaly. She has known coronary artery disease with previous CABG in 2016, Dr. Johan Goss is her physicians assistant. She was admitted then with an acute exacerbation of congestive heart failure. She does drink quite a bit of fluids at home. She was doing better by the time I saw her. PAST MEDICAL HISTORY: Significant for anemia of chronic disease, coronary artery disease with CABG in 2016 and type 2 diabetes. She also had a leg wound of the right foot that is being managed at the wound care center at [facility]. This has been ongoing since 07/2020. ALLERGIES: SHE HAS ALLERGIES TO PROPOXYPHENE, WHICH IS DARVOCET, WHICH IS NO LONGER AVAILABLE. EXACT REACTION IS UNCLEAR. CURRENT MEDICATIONS: Include amlodipine, amoxicillin, Eliquis 5 mg b.i.d., ascorbic acid, aspirin, Lipitor, Coreg, topical diclofenac, fish oil, Lasix 40 mg daily, Neurontin, hydrocodone, insulin, lisinopril, metformin, omeprazole, Ranexa, and zolpidem at bedtime. SOCIAL HISTORY: She was a smoker up to 7 years ago. She denies any alcohol use. She is and lives with her . Her parents are still alive at age 83 and 84, mom and dad respectively. They are frail with chronic medical issues. REVIEW OF SYSTEMS: Significant for the dyspnea with exertion, orthopnea. She is chronically anemic. Her admission hemoglobin was 7.6 g/dL. No nausea. All other systems reviewed and turned to be negative. PHYSICAL EXAMINATION: GENERAL: When I saw her, this is a pleasant, middle-aged female. INITIAL VITAL SIGNS: Showed a blood pressure of 132/99, pulse is 77 and regular. She was afebrile. Oxygen saturation 99% on 3 liters of oxygen per nasal cannula. HEENT: Head is without trauma. Pupils are reactive. Sclerae nonicteric. Oropharynx is clear. NECK: Supple. LUNGS: Good breath sounds, but she has crackles at the bases. CARDIOVASCULAR: Showed regular heart tones. No gallops. Peripheral pulses are palpable and full. ABDOMEN: Soft. EXTREMITIES: Without edema. NEUROLOGIC: Focally intact. SKIN: Warm and dry. PERTINENT LABORATORY STUDIES: Admission hemoglobin is 7.6 g/dL, white count 11,300. Nonfasting blood sugar 202. The first set of cardiac enzyme was 0.17, second set ____ was slightly above the level, I suspect this is stress demand ischemia. Chest x-ray as noted. ASSESSMENT: 1. A 65-year-old female with acute on chronic congestive heart failure. 2. Known coronary artery disease. 3. Slight elevation of enzymes due to stress demand ischemia. 4. Iron deficiency anemia, in hemodiluted state. 5. Type 2 diabetes. PLAN: 1. Admit to the ICU. 2. Wean down supplemental oxygen. 3. Lasix twice a day ordered. 4. 1200 mL daily fluid restriction. 5. Daily weights. 6. Serial chemistries. 7. Serial CBCs. 8. I think she would benefit with a dose of intravenous Venofer while in the hospital: 9. Diabetic diet. CELINA/SHAR DR: Julia TID: [id number] CC: Hasmukh Francis
[2021-01-01] MEDS ORDERED: DICLOFENAC SODIUM 1% TOPICAL GEL 100GM TUBE. TP PRN (09:00)
[2021-01-01] MEDS ORDERED: IRON SUCROSE COMPLEX 400 MG in IV NORMAL SALINE 250ML 250 ML IV ONE (11:30)
[2021-01-01] MEDS: ASPIRIN CHEWABLE 81 MG TABLET. PO SCH (11:39)
[2021-01-01] MEDS: LISINOPRIL 5 MG TABLET. PO SCH (11:39)
[2021-01-01] MEDS: amLODIPine BESYLATE 5 MG TABLET PO SCH (11:39)
[2021-01-01] MEDS: RANOLAZINE 500 MG TAB.ER.12H PO SCH ×2 (11:40→21:12)
[2021-01-01] MEDS: CARVEDILOL 3.125 MG TABLET PO SCH ×2 (11:40→21:12)
[2021-01-01] MEDS: AMOXICILLIN/K CLAV 500/125MG TABLET. PO SCH ×2 (11:40→21:12)
[2021-01-01] MEDS: ASCORBIC ACID 1,000 MG TABLET PO SCH (11:40)
--- NOTE | 2021-01-01 15:17 | NUR ---
Wound/Ostomy Care Wound Type/Assessment: right plantar foot DFU. Pt is a current pt of [facility] wound care center. Cleansed, assessed and redressed wound. Treatment Recommendations/Plan: Cleanse wound, apply Hydrofera blue, cover with ABD and secure with kerlix. Apply D medigrip. Change dressing every other day and PRN for drainage. Education provided: Pt educated on WC POC and PU prevention. No other wounds noted Offloading surface/device: keep pressure off wound Recommended Referrals/Tests: na Discharge Recommendations for dressings: see above, follow up in [facility]
[2021-01-01] MEDS ORDERED: RIVAROXABAN 10 MG TABLET. PO SCH ×2 (17:00)
[2021-01-01] MEDS: metFORMIN 500 MG TABLET PO SCH (17:47)
--- NOTE | 2021-01-01 18:07 | NUR ---
pt has been A & O x4, pt states she feels better and not as SOA, since getting some fluid off. Pt has been getting an infusion of venofer. Pt has been sleeping quite a bit today in between meals. Dr. Zohaib latif'd home medications, pt now on 1200 cc fluid restriction. Wound care was here as well to check dressing, apparently pt had missed 2 appointments in wound clinic. Will CTM
[2021-01-01] MEDS: ATORVASTATIN CALCIUM 20 MG TABLET PO SCH (21:12)
[2021-01-01] MEDS: ZOLPIDEM 5 MG TABLET. PO PRN (21:12)
[2021-01-01] MEDS: APIXABAN 5 MG TABLET. PO SCH (21:12)
[2021-01-01] MEDS: HYDROcodone/APAP 5/325MG 1 TAB TABLET PO PRN (21:13)
[2021-01-01] MEDS: INSULIN GLARGINE SYRINGE. SQ SCH (21:21)
[2021-01-02] VITALS (9 sets, daily range): BP systolic 121–162; BP diastolic 46–74
--- NOTE | 2021-01-02 06:30 | NUR ---
Pt slept well throughout the night. States she is feeling better this am. pts oxygen dropped into the low 80s in the night, applied 2L NC sats improved to >95%. otherwise status unchanged.
[2021-01-02 06:39] LABS: BASO # 0.1 x10^3/uL (0.0-0.2); BASO % 1 % (0-3); EOS # 0.1 x10^3/uL (0.0-0.7); EOS % 1 % (0-3); LYMPH % 22 % (24-48); MEAN CORPUSCULAR HEMOGLOBIN 29 pg (25-35); MEAN CORPUSCULAR HGB CONC 33 g/dL (31-37); MEAN CORPUSCULAR VOLUME 86 fL (79-100); MONO # 0.7 x10^3/uL (0.0-1.1); MONO % 7 % (0-9); NEUT # 6.3 x10^3uL (1.8-7.7); NEUT % 69 % (31-73); PLATELET COUNT 475 x10^3/uL (140-400); RED BLOOD COUNT 2.79 x10^6/uL (3.50-5.40); RED CELL DISTRIBUTION WIDTH 13.7 % (11.5-14.5); WHITE BLOOD COUNT 9.2 x10^3/uL (4.0-11.0)
[2021-01-02 06:43] LABS: CALCIUM 8.6 mg/dL (8.5-10.1); CREATININE 0.9 mg/dL (0.6-1.0); POTASSIUM 4.8 mmol/L (3.5-5.1)
[2021-01-02] MEDS: metFORMIN 500 MG TABLET PO SCH ×2 (08:21→18:01)
[2021-01-02] MEDS: ASPIRIN CHEWABLE 81 MG TABLET. PO SCH (08:21)
[2021-01-02] MEDS: LISINOPRIL 5 MG TABLET. PO SCH (08:21)
[2021-01-02] MEDS: APIXABAN 5 MG TABLET. PO SCH ×2 (08:22→20:16)
[2021-01-02] MEDS: PANTOPRAZOLE 40 MG TABLET. PO SCH (08:22)
[2021-01-02] MEDS: amLODIPine BESYLATE 5 MG TABLET PO SCH (08:22)
[2021-01-02] MEDS: RANOLAZINE 500 MG TAB.ER.12H PO SCH ×2 (08:23→20:17)
[2021-01-02] MEDS: CARVEDILOL 3.125 MG TABLET PO SCH ×2 (08:23→20:16)
[2021-01-02] MEDS: AMOXICILLIN/K CLAV 500/125MG TABLET. PO SCH ×2 (08:24→20:16)
[2021-01-02] MEDS: ASCORBIC ACID 1,000 MG TABLET PO SCH (09:25)
[2021-01-02] MEDS: LACTOBACILLUS RHAMNOSUS GG 1 CAPSULE. PO SCH ×2 (09:26→20:15)
[2021-01-02] MEDS: HYDROcodone/APAP 5/325MG 1 TAB TABLET PO PRN (18:30)
[2021-01-02] MEDS: ATORVASTATIN CALCIUM 20 MG TABLET PO SCH (20:16)
[2021-01-02] MEDS: ZOLPIDEM 5 MG TABLET. PO PRN (20:16)
[2021-01-02] MEDS: INSULIN GLARGINE SYRINGE. SQ SCH (20:23)
[2021-01-03] MEDS: HYDROcodone/APAP 5/325MG 1 TAB TABLET PO PRN (00:33)
[2021-01-03 02:35] VITALS: BP 140/59
[2021-01-03 05:15] VITALS: BP 151/68
[2021-01-03 05:45] VITALS: BP 143/64
--- NOTE | 2021-01-03 06:40 | PN ---
DATE: 01/02/2021 ATTENDING PHYSICIAN: Dr. Penny. SUBJECTIVE: Breathing better. She is able to sleep better last night. OBJECTIVE FINDINGS: VITAL SIGNS: Blood pressure this morning is 140/70, pulse is 72 and regular. She is afebrile. Weight is down 2 kilograms from admission. HEENT: Head is without trauma. Pupils are reactive. Sclerae nonicteric. Oropharynx is clear. NECK: Supple, no bruits. LUNGS: Clear with good breath sounds. CARDIOVASCULAR: Shows regular heart tones. No gallops. ABDOMEN: Soft. EXTREMITIES: Without edema. Chronic wound on the right foot as noted. PERTINENT LABORATORY STUDIES: Blood sugars have been in the mid 100s. Electrolytes: Potassium is 4.8 mEq per liter. Creatinine 0.9 mg percent. Hemoglobin is up to 8.0 grams, white count 9200. ASSESSMENT: 1. A 65-year-old female with acute on chronic congestive heart failure. 2. Known coronary artery disease with previous coronary artery bypass graft. 3. Slight elevation of cardiac enzymes due to stress demand ischemia. 4. Iron deficiency anemia, slightly improved with intravenous Venofer. 5. Type 2 diabetes with very well controlled sugars. Her last A1c was under 6. PLAN: 1. Continue diuresis b.i.d. 2. Fluid restriction. 3. Daily weights. 4. Serial chemistries. 5. We are weaning her off of supplemental oxygen. 6. Tentative discharge plans for tomorrow or Monday. CELINA/DREW/SHERIE DR: CELINA/simona TID: [id number] CC: Dr. Francis
[2021-01-03 07:17] LABS: BASO % 0 % (0-3); EOS # 0.1 x10^3/uL (0.0-0.7); EOS % 1 % (0-3); HEMATOCRIT 26.1 % (36.0-47.0); HEMOGLOBIN 8.7 g/dL (12.0-15.5); LYMPH % 18 % (24-48); MEAN CORPUSCULAR HEMOGLOBIN 29 pg (25-35); MEAN CORPUSCULAR HGB CONC 33 g/dL (31-37); MEAN CORPUSCULAR VOLUME 86 fL (79-100); MONO % 9 % (0-9); NEUT # 7.9 x10^3uL (1.8-7.7); NEUT % 72 % (31-73); PLATELET COUNT 523 x10^3/uL (140-400); RED BLOOD COUNT 3.04 x10^6/uL (3.50-5.40); RED CELL DISTRIBUTION WIDTH 13.6 % (11.5-14.5)
--- NOTE | 2021-01-03 09:08 | DS ---
DATE OF DISCHARGE: 01/03/2021 ATTENDING PHYSICIAN: Dr. Penny. FINAL DISCHARGE DIAGNOSES: 1. Acute on chronic congestive heart failure, compensated. 2. Coronary artery disease with previous coronary artery bypass and graft. 3. Slight elevation of cardiac enzymes due to stress demand ischemia. No other symptoms. 4. Iron deficiency anemia improved with Venofer. 5. Type 2 diabetes with well controlled sugars. 6. Volume overload due to excess ingestion of fluids. HISTORY AND PHYSICAL: The patient is a 65-year-old female admitted to the ED with increasing dyspnea, shortness of breath, orthopnea and dyspnea at rest. She unfortunately ingest quite a bit of fluids, water, tea, etc. and has volume overload. She has had previous bypass surgery 6 years ago. PHYSICAL EXAMINATION: Please see the dictated note. PERTINENT LABORATORY AND X-RAY STUDIES: Admission hemoglobin was 7.6 g/dL. She was at borderline hemoglobin. She did not warrant transfusion. I did give her a treatment of Venofer 400 mg intravenously, it brought the hemoglobin up to 8.0 and 8.7 g/dL. She tolerated it well. White count was 11,000. Electrolytes: Potassium was replaced to 4.8 mEq, creatinine stable at 0.9 mg percent. Nonfasting blood sugar well controlled 111, 109, and 110 respectively. COURSE IN THE HOSPITAL: The patient was admitted. She was started on intravenous Lasix twice a day along with daily weights, fluid restriction, potassium and magnesium replacement. Low hemoglobin was treated with 1 course of Venofer with prompt improvement, but it also was helped by hemoconcentration from her diuresis. Weights were improved approximately 7-8 pounds of fluid, perhaps more was diuresed. She did well by the fourth hospital day, her vital signs were quite stable. Her BP was 143/64, pulse is regular. She was afebrile and oxygen saturation 93% on room air. She is discharged home with the following slight change in her meds. I increased her Lasix to 80 mg p.o. daily in the morning with instructions to monitor daily weights should the weight go up 1 pound above her dry weight, she can take a second dose in the afternoon. In addition, she will be on K-Dur 20 mEq p.o. daily. She will continue her Eliquis 5 mg b.i.d., amlodipine 5 mg daily, aspirin 81 mg daily, Lipitor 40 mg daily, Coreg 3.125 mg b.i.d., diclofenac gel, hydrocodone p.r.n., insulin Humalog as scheduled, lisinopril 5 mg daily, metformin 1000 mg b.i.d., omeprazole 40 mg daily, Ranexa 500 mg daily, and Ambien 10 mg at bedtime. For now, I recommend that she hold off the Neurontin, which causes dry mouth, fish oil and she is finished with her Augmentin. I suggested a followup visit with her PCP, Dr. Francis in 2 weeks' time for recheck. The patient was then discharged from our hospital in stable condition with explicit instructions for followup care. Total discharge time spent 41 minutes. CELINA/LILIANA DR: Julia TID: [id number] CC: Hasmukh Francis
[2021-01-03] MEDS: ASPIRIN CHEWABLE 81 MG TABLET. PO SCH (09:12)
[2021-01-03] MEDS: PANTOPRAZOLE 40 MG TABLET. PO SCH (09:13)
[2021-01-03] MEDS: LACTOBACILLUS RHAMNOSUS GG 1 CAPSULE. PO SCH (09:19)
[2021-01-03] MEDS: CARVEDILOL 3.125 MG TABLET PO SCH (09:19)
[2021-01-03] MEDS: RANOLAZINE 500 MG TAB.ER.12H PO SCH (09:19)
[2021-01-03] MEDS: AMOXICILLIN/K CLAV 500/125MG TABLET. PO SCH (09:20)
[2021-01-03] MEDS: metFORMIN 500 MG TABLET PO SCH (09:20)
[2021-01-03] MEDS: LISINOPRIL 5 MG TABLET. PO SCH (09:21)
[2021-01-03] MEDS: APIXABAN 5 MG TABLET. PO SCH (09:21)
[2021-01-03 09:27] VITALS: BP 143/64
[2021-01-03] MEDS: ASCORBIC ACID 1,000 MG TABLET PO SCH (09:27)
[2021-01-03] MEDS: amLODIPine BESYLATE 5 MG TABLET PO SCH (09:27)
--- NOTE | 2021-01-03 10:30 | NUR ---
PT SIGNED D/C PAPERWORK. DR. MURILLO AT BEDSIDE DISCUSSING D/C. PT AGREES; STATES SHE WILL FOLLOW UP WITH PCP. PT'S IV WAS D/C'D. PT WAS SENT HOME WITH SCRIPT FOR K-DUR 20 MEQ & LASIX 80 MG DAILY. PT WAS WHEELED OUT TO THE FRONT DOOR WHERE HER RIDE CAME AND GOT HER.
--- NOTE | 2021-01-04 13:37 | EKG ---
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
== END 2021-01-03 10:30 | disposition home or self-care (01) | DRG 291 ==
LOC: ER 23:42 → ICU 01-01 02:29 → ER 01-01 03:08 → 1 SOUTH 01-03 06:30
PROVIDERS: ADMIT Hospitalist; ATTEND Hospitalist
PROC: 5A09357 Assistance with Respiratory Ventilation, Less than 24 Consecutive Hours, Continuous Positive Airway Pressure (ICD-10-PCS; principal; 2021-01-01)
DX: I11.0 Hypertensive heart disease with heart failure (principal); E43 Unspecified severe protein-calorie malnutrition; D63.8 Anemia in other chronic diseases classified elsewhere; D72.829 Elevated white blood cell count, unspecified; E11.51 Type 2 diabetes mellitus with diabetic peripheral angiopathy without gangrene; I50.23 Acute on chronic systolic (congestive) heart failure; E78.5 Hyperlipidemia, unspecified; I25.10 Atherosclerotic heart disease of native coronary artery without angina pectoris; Z79.01 Long term (current) use of anticoagulants; Z79.82 Long term (current) use of aspirin; Z79.84 Long term (current) use of oral hypoglycemic drugs; Z79.899 Other long term (current) drug therapy; Z87.891 Personal history of nicotine dependence; Z95.1 Presence of aortocoronary bypass graft; M19.90 Unspecified osteoarthritis, unspecified site; Z68.24 Body mass index [BMI] 24.0-24.9, adult
CPT/HCPCS: 36415; 71045; 80048; 80076; 81001; 82550; 82803; 82947; 83605; 83690; 83735; 83880; 84443; 84484; 85025; 85379; 85610; 85730; 87040; 87205; 93005; 94640; 94660; 96374; 96375; 96376; 99292; J1756; J1815; J1940; J2405; J7050; 99291-25

== ENCOUNTER 2021-11-01 11:01 | Emergency (ER) | payer MEDICARE ==
[~2021-11-01] VITALS: Ht 167.6 cm; Wt 75.7 kg
[~2021-11-01 11:01] MED LIST changes: +AMLO-186 PO; +AMOX1TAB10 PO; +DICL100G28 TP; -FENO134C PO; +FENO134C21 PO; +FURO40TA4 PO; +HYDR-2155 PO; +LISI5TAB15 PO; +OMEP40CA7 PO; +ZOLP10TA PO
--- NOTE | 2021-11-01 11:13 | PHYS DOC ---
Past History Past Medical History: Anemia, Angina, Arthritis, Arrhythmia, CHF, Diabetes, Hypertension, Vascular Disease Additional Past Medical Histor: wound care RLE Past Surgical History: Coronary Bypass Surgery Alcohol Use: None Drug Use: None General Adult HPI: HPI: Patient is a 66-year-old female coming in for a wound on her left lower leg. Patient states that her dogs got into a fight and she was trying to separate them one of the spike collars caused 2 deep lacerations medial left lower leg. Patient states she bled a lot on scene because she is on Eliquis. Patient has a history of multiple lower extremity amputations including a BKA about 4 months ago due to osteomyelitis. Last tetanus greater than 5 years ago. Patient states that both of her dogs are up-to-date on their vaccinations. Review of Systems: Review of Systems: Constitutional: Denies fever or chills Eyes: Denies change in visual acuity HENT: Denies nasal congestion or sore throat Respiratory: Denies cough or shortness of breath Cardiovascular: Denies chest pain or edema GI: Denies abdominal pain, nausea, vomiting, bloody stools or diarrhea : Denies dysuria Musculoskeletal: Denies back pain or joint pain Integument: Denies rash Neurologic: Denies headache, focal weakness or sensory changes Endocrine: Denies polyuria or polydipsia Lymphatic: Denies swollen glands Psychiatric: Denies depression or anxiety Allergies: Allergies: Allergies Coded Allergies Type Severity Reaction Last Updated Verified propoxyphene Allergy Intermediate 01/01/21 Yes Physical Exam: PE: Constitutional: Well developed, well nourished, no acute distress, non-toxic appearance. [] HENT: Normocephalic, atraumatic, bilateral external ears normal, oropharynx moist, no oral exudates, nose normal. [] Eyes: PERRLA, EOMI, conjunctiva normal, no discharge. [] Neck: Normal range of motion, no tenderness, supple, no stridor. [] Cardiovascular:Heart rate regular rhythm, no murmur [] Lungs & Thorax: Bilateral breath sounds clear to auscultation [] Abdomen: Bowel sounds normal, soft, no tenderness, no masses, no pulsatile masses. [] Skin: Warm, dry, no erythema, no rash. [] Back: No tenderness, no CVA tenderness. [] Extremities: No tenderness, no cyanosis, no clubbing, ROM intact, no edema. [] Neurologic: Alert and oriented X 3, normal motor function, normal sensory function, no focal deficits noted. [] Psychologic: Affect normal, judgement normal, mood normal. [] EKG: EKG: [] Radiology/Procedures: Radiology/Procedures: [] Heart Score: C/O Chest Pain: No Risk Factors: Risk Factors: DM, Current or recent (<one month) smoker, HTN, HLP, family history of CAD, obesity. Risk Scores: Score 0 - 3: 2.5% MACE over next 6 weeks - Discharge Home Score 4 - 6: 20.3% MACE over next 6 weeks - Admit for Clinical Observation Score 7 - 10: 72.7% MACE over next 6 weeks - Early Invasive Strategies Course & Med Decision Making: Course & Med Decision Making Patient with severe peripheral vascular disease and diabetic complications with multiple amputations. Consulted hospitalist, Dr. Penny, about patient admission for IV antibiotics and wound care. He does not feel that [facility] has enough skilled wound care coverage, will transfer to [place]. Dr. Flynn accepts patient. Patient given Rocephin and tetanus updated. Lalitoon Disclaimer: Raysa Disclaimer: This electronic medical record was generated, in whole or in part, using a voice recognition dictation system. Departure Departure: Impression: Primary Impression: Traumatic open wound of left lower leg Disposition: 02 SHORT TERM HOSPITAL Condition: STABLE Referrals: BEVERLY FORD MD (PCP) NARAYAN ESPINOZA MD November 01, 2021 11:13
--- NOTE | 2021-11-01 11:36 | RAD ---
Left tibia and fibula. HISTORY: Dog bite 3 views were taken the left tibia and fibula. There are pennie in the proximal calf suggesting previ ous vascular surgery. There is no fracture or acute osseous abnormality in the tibia or fibula. There is mild soft tissue swelling. IMPRESSION: 1. No fracture or acute osseous abnormality in the left tibia or fibula. Electronically signed by: Sai Benoit MD (11/01/2021 11:34 AM) [id number]
[2021-11-01] MEDS ORDERED: DIPHTH,PERTUSS(ACELL),TET TOX 0.5 ML DISP.SYRIN. VAX IM ONE (11:45)
[2021-11-01] MEDS ORDERED: cefTRIAXone SODIUM 1 GM VIAL ONE (11:54)
[2021-11-01] MEDS ORDERED: IV NORMAL SALINE 50ML 50 ML ONE (11:55)
[2021-11-01] MEDS ORDERED: ACETAMINOPHEN 325 MG TABLET PO PRN (12:00)
[2021-11-01] MEDS ORDERED: ONDANSETRON PF 4 MG/2 ML VIAL. IVP PRN (12:00)
[2021-11-01 12:12] LABS: BASO % 0 % (0-3); EOS # 0.1 x10^3/uL (0.0-0.7); EOS % 1 % (0-3); HEMATOCRIT 34.9 % (36.0-47.0); LYMPH # 1.3 x10^3/uL (1.0-4.8); LYMPH % 14 % (24-48); MEAN CORPUSCULAR HEMOGLOBIN 31 pg (25-35); MEAN CORPUSCULAR HGB CONC 34 g/dL (31-37); MEAN CORPUSCULAR VOLUME 90 fL (79-100); MONO # 0.4 x10^3/uL (0.0-1.1); MONO % 4 % (0-9); NEUT # 7.5 x10^3uL (1.8-7.7); NEUT % 81 % (31-73); PLATELET COUNT 302 x10^3/uL (140-400); RED BLOOD COUNT 3.89 x10^6/uL (3.50-5.40); RED CELL DISTRIBUTION WIDTH 13.2 % (11.5-14.5); WHITE BLOOD COUNT 9.3 x10^3/uL (4.0-11.0)
[2021-11-01 12:22] LABS: CALCIUM 9.9 mg/dL (8.5-10.1); CREATININE 1.1 mg/dL (0.6-1.0); GFR 49.8
[2021-11-01 12:30] LABS: ALBUMIN 3.7 g/dL (3.4-5.0); ALBUMIN/GLOBULIN RATIO 0.9 (1.0-1.7); TOTAL BILIRUBIN 0.5 mg/dL (0.2-1.0); TOTAL PROTEIN 7.8 g/dL (6.4-8.2)
[2021-11-01 14:44] VITALS: BP 168/77
== END 2021-11-01 15:35 | disposition short-term general hospital (02) ==
LOC: ER 11:01 → UNDOADMIN 11:59 → ER HOLD 11:59 → ER 15:35
DX: S81.802A Unspecified open wound, left lower leg, initial encounter (principal); I11.0 Hypertensive heart disease with heart failure; I50.9 Heart failure, unspecified; E11.9 Type 2 diabetes mellitus without complications; M19.90 Unspecified osteoarthritis, unspecified site; Z86.2 Personal history of diseases of the blood and blood-forming organs and certain disorders involving the immune mechanism; Z95.1 Presence of aortocoronary bypass graft; Z88.8 Allergy status to other drugs, medicaments and biological substances; W54.0XXA Bitten by dog, initial encounter; Y93.89 Activity, other specified; Y92.89 Other specified places as the place of occurrence of the external cause; Y99.8 Other external cause status
CPT/HCPCS: 36415; 73590; 80053; 85025; 90471; 90715; 96365; 96375; 96376; 99285; J0696; J3010

== ENCOUNTER 2021-11-06 21:36 | Inpatient (IN) | payer MEDICARE ==
[~2021-11-06] VITALS: Ht 167.6 cm; Wt 79.2 kg
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
[2021-11-06] MEDS ORDERED: IOHEXOL 350 MG/ML 100 ML VIAL. IV ONE (22:00)
[2021-11-06] MEDS ORDERED: CONTRAST GIVEN. MC PRN (22:00)
[2021-11-06] MEDS ORDERED: IV RINGERS SOLUTION,LACTATED 1,000 ML IV ONE (22:00)
[2021-11-06 22:13] LABS: BASO # 0.1 x10^3/uL (0.0-0.2); BASO % 1 % (0-3); EOS # 0.2 x10^3/uL (0.0-0.7); EOS % 2 % (0-3); HEMATOCRIT 31.2 % (36.0-47.0); HEMOGLOBIN 10.5 g/dL (12.0-15.5); LYMPH # 2.1 x10^3/uL (1.0-4.8); LYMPH % 21 % (24-48); MEAN CORPUSCULAR HEMOGLOBIN 31 pg (25-35); MEAN CORPUSCULAR HGB CONC 34 g/dL (31-37); MEAN CORPUSCULAR VOLUME 91 fL (79-100); MONO # 0.8 x10^3/uL (0.0-1.1); MONO % 8 % (0-9); NEUT # 6.8 x10^3uL (1.8-7.7); NEUT % 69 % (31-73); PLATELET COUNT 288 x10^3/uL (140-400); RED BLOOD COUNT 3.43 x10^6/uL (3.50-5.40); RED CELL DISTRIBUTION WIDTH 13.3 % (11.5-14.5); WHITE BLOOD COUNT 9.9 x10^3/uL (4.0-11.0)
[2021-11-06 22:25] LABS: CALCIUM 9.4 mg/dL (8.5-10.1); CREATININE 1.4 mg/dL (0.6-1.0); GFR 37.7; POTASSIUM 4.8 mmol/L (3.5-5.1)
[2021-11-06 22:37] LABS: ALBUMIN 3.6 g/dL (3.4-5.0); TOTAL BILIRUBIN 0.5 mg/dL (0.2-1.0); TOTAL PROTEIN 7.2 g/dL (6.4-8.2)
[2021-11-06 23:05] LABS: BGAS PH 7.34 (7.35-7.45)
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
[2021-11-06] MEDS ORDERED: metOLazone 5 MG TABLET PO SCH (23:58)
[2021-11-07] MEDS ORDERED: MORPHINE SULFATE 10 MG/ML SYRINGE. SQ ONE
[2021-11-07] MEDS ORDERED: FUROSEMIDE 40 MG/4 ML VIAL IVP ONE
[2021-11-07] MEDS ORDERED: ONDANSETRON PF 4 MG/2 ML VIAL. IVP ONE
[2021-11-07] MEDS ORDERED: MORPHINE SULFATE 2 MG/ML DISP.SYRIN. IVP PRN (00:45)
[2021-11-07] MEDS ORDERED: ONDANSETRON PF 4 MG/2 ML VIAL. IVP PRN (00:45)
[2021-11-07 01:30] VITALS: BP 156/76
[2021-11-07 01:48] LABS: BACTERIA,URINE 0 /HPF (0-FEW); CLARITY,URINE CLEAR; COLOR,URINE YELLOW; GLUCOSE,URINE 100 mg/dL (NEG); NITRITE,URINE NEG (NEG); RBC,URINE 0 /HPF (0-2); SQUAMOUS EPITHELIAL CELL,UR OCC /LPF; UROBILINOGEN,URINE 0.2 mg/dL (0.2 mg/dL)
[2021-11-07] MEDS ORDERED: C.DIFF MED SCREEN BY RX. MC ONE (02:45)
[2021-11-07 05:53] VITALS: BP 154/74
[2021-11-07] MEDS ORDERED: DICLOFENAC SODIUM 1% TOPICAL GEL 100GM TUBE. TP PRN (08:45)
[2021-11-07] MEDS ORDERED: ZOLPIDEM 5 MG TABLET. PO PRN (09:00)
--- NOTE | 2021-11-07 09:13 | HP ---
DATE OF SERVICE: 11/07/2021 ADMIT DATE: 11/07/2021 ATTENDING PHYSICIAN: Dr. Penny. CHIEF COMPLAINT: Shortness of breath. HISTORY OF PRESENT ILLNESS: The patient is a 66-year-old female well known to us from previous admissions. She was hospitalized last December with acute exacerbation of COPD and congestive heart failure. She had a bypass surgery 7 years ago. She recently was seen in the ED 4 days ago, sent to [facility] with a significant wound from a dog bite. It is on the anterior chavis of the left leg. She already has a right xvwvx-lym-lzsh amputation. She also has surgical amputation of 3 toes from the left foot. The wound was gaping it could not be sutured up. She was sent to [facility] for antibiotics as well as surgical debridement. The wound was clean. The plan is for secondary granulation with eventual skin graft. Whether or not that will happen remains to be seen. The concern obviously is she has significant peripheral vascular disease. Workup in the ED showed bilateral pleural effusions. She has very little insight into her illness. She is admitted then with kksdi-mi-yadsnck congestive heart failure. 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 PAST MEDICAL HISTORY: Significant for peripheral vascular disease, below the knee amputation, surgical amputation of 3 toes of the left foot, anemia of chronic disease, angina pectoris, degenerative arthritis, vascular dementia and diabetes. She also has hypertension. ALLERGIES: SHE HAS ALLERGIES TO PROPOXYPHENE. CURRENT MEDICATIONS: She was on scheduled Eliquis 5 mg b.i.d., Ranexa, Lipitor, Coreg, amlodipine, lisinopril, aspirin, diclofenac gel, hydrocodone p.r.n., omeprazole, Lasix 40 mg b.i.d. and Augmentin. SOCIAL HISTORY: She is a former smoker. She denies any alcohol use. FAMILY HISTORY: Noncontributory. REVIEW OF SYSTEMS: Significant for 2 pillow orthopnea. No COVID exposure. The recent dog wound was hospitalized and treated at [facility]. She was just discharged this past . All other systems reviewed and turned to be negative. She does not weigh herself every day. PHYSICAL EXAMINATION: GENERAL: When I saw her, this is a chronically ill-appearing female who is in no acute distress. VITAL SIGNS: Showed a blood pressure of 130/80, pulse is 62 and regular. She is afebrile. Oxygen saturation 98% on 2 liters. HEENT: Head is without trauma. Pupils are reactive. Sclerae nonicteric. Oropharynx clear. NECK: Supple. Venous pressure distended at 45 degrees. LUNGS: Bibasilar rales. CARDIOVASCULAR: Showed distant heart tones. No gallops. Midline incision is well healed. ABDOMEN: Soft, protuberant. No organomegaly. Bowel sounds were hypoactive. EXTREMITIES: Showed surgical absence of the right leg below the knee. That stump is clean. The left leg anterior chavis is dressed. I did see the wound 5 days ago in the ED. It is open, it is significant and there is no ability to close the wound because of the dog injury. That wound was cleaned and debrided. I have not seen it today. LABORATORY DATA: Chest x-ray shows bilateral pleural effusions and vascular congestion. Hemoglobin 10.5 grams, white count 9900. Electrolytes within normal range. Creatinine is 1.4 mg/dL. Nonfasting blood sugar 120. ASSESSMENT: 1. This 66-year-old female has [id number]-[id number] congestive heart failure, systolic. 2. Questionable compliance and insight into management. 3. Peripheral vascular disease. 4. Type 2 diabetes. 5. 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 6. Significant wound of the left chavis. PLAN: 1. Admit to the inpatient unit. 2. Increase the Lasix dose. 3. Daily weights. 4. Fluid restriction. 5. Serial chemistries. 6. Continue Augmentin as ordered. CELINA/NATI DR: Julia TID: [id number] CC: Hasmukh Francis MD
[2021-11-07] MEDS: APIXABAN 5 MG TABLET. PO SCH ×2 (09:44→20:34)
[2021-11-07] MEDS: RANOLAZINE 500 MG TAB.ER.12H PO SCH ×2 (09:44→20:33)
[2021-11-07] MEDS: PANTOPRAZOLE 40 MG TABLET. PO SCH (09:44)
[2021-11-07] MEDS: AMOXICILLIN/K CLAV 500/125MG TABLET. PO SCH ×2 (09:44→20:34)
[2021-11-07] MEDS: FUROSEMIDE 80 MG TABLET PO SCH ×2 (09:45→15:48)
[2021-11-07] MEDS: CARVEDILOL 3.125 MG TABLET PO SCH ×2 (09:45→20:34)
[2021-11-07] MEDS: ASCORBIC ACID 1,000 MG TABLET PO SCH (09:45)
[2021-11-07] MEDS: POTASSIUM CHLORIDE 20 MEQ TABLET.ER. PO SCH ×2 (09:45→20:32)
[2021-11-07] MEDS: LISINOPRIL 5 MG TABLET. PO SCH (09:46)
[2021-11-07] MEDS: amLODIPine BESYLATE 5 MG TABLET PO SCH (09:46)
[2021-11-07] MEDS: ASPIRIN CHEWABLE 81 MG TABLET. PO SCH (09:46)
[2021-11-07] MEDS: HYDROcodone/APAP 5/325MG 1 TAB TABLET PO PRN ×2 (10:45→20:31)
[2021-11-07 11:52] VITALS: BP 148/71
[2021-11-07 15:41] VITALS: BP 123/70
[2021-11-07 19:37] VITALS: BP 133/69
[2021-11-07] MEDS: ATORVASTATIN CALCIUM 20 MG TABLET PO SCH (20:34)
[2021-11-07] MEDS: INSULIN GLARGINE SYRINGE. SQ SCH (20:43)
[2021-11-07 23:00] VITALS: BP 105/58
[2021-11-08 03:00] VITALS: BP 153/75
[2021-11-08] MEDS: HYDROcodone/APAP 5/325MG 1 TAB TABLET PO PRN ×4 (03:22→20:29)
[2021-11-08 05:56] LABS: BASO % 0 % (0-3); EOS # 0.1 x10^3/uL (0.0-0.7); EOS % 2 % (0-3); HEMATOCRIT 26.4 % (36.0-47.0); HEMOGLOBIN 9.1 g/dL (12.0-15.5); LYMPH # 1.7 x10^3/uL (1.0-4.8); LYMPH % 23 % (24-48); MEAN CORPUSCULAR HEMOGLOBIN 31 pg (25-35); MEAN CORPUSCULAR HGB CONC 35 g/dL (31-37); MEAN CORPUSCULAR VOLUME 90 fL (79-100); MONO # 0.7 x10^3/uL (0.0-1.1); MONO % 10 % (0-9); NEUT # 4.8 x10^3uL (1.8-7.7); NEUT % 65 % (31-73); PLATELET COUNT 228 x10^3/uL (140-400); RED BLOOD COUNT 2.93 x10^6/uL (3.50-5.40); RED CELL DISTRIBUTION WIDTH 13.2 % (11.5-14.5); WHITE BLOOD COUNT 7.4 x10^3/uL (4.0-11.0)
[2021-11-08 06:01] LABS: CREATININE 1.3 mg/dL (0.6-1.0); GFR 41.1; POTASSIUM 4.2 mmol/L (3.5-5.1)
[2021-11-08] MEDS ORDERED: LIDOCAINE (700MG/PATCH) PATCH. TD PRN (08:30)
[2021-11-08] MEDS: RANOLAZINE 500 MG TAB.ER.12H PO SCH ×2 (08:41→20:28)
[2021-11-08] MEDS: PANTOPRAZOLE 40 MG TABLET. PO SCH (08:41)
[2021-11-08] MEDS: ASPIRIN CHEWABLE 81 MG TABLET. PO SCH (08:42)
[2021-11-08] MEDS: AMOXICILLIN/K CLAV 500/125MG TABLET. PO SCH ×2 (08:42→20:29)
[2021-11-08] MEDS: LISINOPRIL 5 MG TABLET. PO SCH (08:42)
[2021-11-08] MEDS: FUROSEMIDE 80 MG TABLET PO SCH ×2 (08:42→16:00)
[2021-11-08] MEDS: POTASSIUM CHLORIDE 20 MEQ TABLET.ER. PO SCH ×2 (08:42→20:29)
[2021-11-08] MEDS: ASCORBIC ACID 1,000 MG TABLET PO SCH (08:43)
[2021-11-08] MEDS: CARVEDILOL 3.125 MG TABLET PO SCH ×2 (08:43→20:30)
[2021-11-08] MEDS: amLODIPine BESYLATE 5 MG TABLET PO SCH (08:43)
[2021-11-08] MEDS: APIXABAN 5 MG TABLET. PO SCH ×2 (08:43→20:29)
[2021-11-08] MEDS: LACTOBACILLUS RHAMNOSUS GG 1 CAPSULE. PO SCH ×2 (08:43→20:30)
[2021-11-08 11:00] VITALS: BP 166/68
[2021-11-08 15:57] VITALS: BP 157/79
[2021-11-08 19:00] VITALS: BP 161/71
[2021-11-08] MEDS: ATORVASTATIN CALCIUM 20 MG TABLET PO SCH (20:28)
[2021-11-08] MEDS: INSULIN GLARGINE SYRINGE. SQ SCH (20:37)
--- NOTE | 2021-11-08 20:58 | PN ---
DATE: 11/08/2021 ATTENDING PHYSICIAN: Dr. Penny. SUBJECTIVE: She is breathing better. She is diuresing well. Her main complaint still seems to be a posterior scapular pain related to the dog injury. OBJECTIVE FINDINGS: VITAL SIGNS: Blood pressure is between 130 and 150 this morning. She is afebrile. Oxygen saturation 92% on room air. HEENT: Head is without trauma. Pupils are reactive. Sclerae nonicteric. The oropharynx is clear. NECK: Supple, no bruits. LUNGS: Good breath sounds. CARDIOVASCULAR: Showed distant heart tones. No gallops. ABDOMEN: Soft. EXTREMITIES: Show decreased edema of the left leg. There is surgical absence of the right leg. The stump is clean. The wound over the left chavis is dressed. It is an open wound and subject to healing by granulation from inside. PERTINENT LABORATORY STUDIES: Her chemistry this morning showed a sodium of 140 mEq per liter, potassium is 4.2 mEq per liter, creatinine is stable 1.3 mg percent. Nonfasting blood sugar 120. Hemoglobin is 9.1 g/dL, white count 7400. ASSESSMENT: 1. A 66-year-old female with acute on chronic congestive heart failure, improved. 2. Peripheral vascular disease with right ebpvl-zby-mwnh amputation. 3. Questionable compliance and insight into the management of the disease. 4. Type 2 diabetes. 5. Recent diagnosis of a dog bite and significant open wound of the left chavis. PLAN: 1. Continue Lasix as ordered twice a day. 2. Daily weights with fluid restriction. 3. Serial chemistry. 4. Continue Augmentin as prescribed by [place] physicians. 5. Tentative discharge plans for tomorrow. NAVNEET DR: Julia TID: [id number] CC: Hasmukh Francis
[2021-11-08 23:00] VITALS: BP 130/71
[2021-11-09 05:00] VITALS: BP 167/76
[2021-11-09] MEDS ORDERED: metFORMIN 500 MG TABLET PO SCH (08:00)
[2021-11-09 08:54] VITALS: BP 150/72
[2021-11-09] MEDS: FUROSEMIDE 80 MG TABLET PO SCH ×2 (08:58→09:00)
[2021-11-09] MEDS: RANOLAZINE 500 MG TAB.ER.12H PO SCH (08:59)
[2021-11-09] MEDS: AMOXICILLIN/K CLAV 500/125MG TABLET. PO SCH (08:59)
[2021-11-09] MEDS: PANTOPRAZOLE 40 MG TABLET. PO SCH (08:59)
[2021-11-09] MEDS: POTASSIUM CHLORIDE 20 MEQ TABLET.ER. PO SCH (09:00)
[2021-11-09] MEDS: CARVEDILOL 3.125 MG TABLET PO SCH (09:00)
[2021-11-09] MEDS: APIXABAN 5 MG TABLET. PO SCH (09:01)
[2021-11-09] MEDS: LISINOPRIL 5 MG TABLET. PO SCH (09:01)
[2021-11-09 09:02] VITALS: BP 150/72
[2021-11-09] MEDS: ASCORBIC ACID 1,000 MG TABLET PO SCH (09:02)
[2021-11-09] MEDS: amLODIPine BESYLATE 5 MG TABLET PO SCH (09:02)
[2021-11-09] MEDS: LACTOBACILLUS RHAMNOSUS GG 1 CAPSULE. PO SCH (09:02)
[2021-11-09] MEDS: ASPIRIN CHEWABLE 81 MG TABLET. PO SCH (09:02)
[2021-11-09] MEDS: HYDROcodone/APAP 5/325MG 1 TAB TABLET PO PRN (09:04)
--- NOTE | 2021-11-09 16:01 | DS ---
DATE OF DISCHARGE: 11/09/2021 ATTENDING PHYSICIAN: Dr. Penny. FINAL DISCHARGE DIAGNOSES: 1. [place]-[id number] congestive heart failure, systolic, improved. 2. Peripheral vascular disease with right xdbim-bld-[id number] amputation. 3. Recent dog bite and significant open wound of the left chavis, treated secondarily with plans for granulation tissue and eventual plastic surgery revision. 4. Peripheral vascular disease. 5. Questionable compliance. 6. Type 2 diabetes. HISTORY AND PHYSICAL: The patient is a 66-year-old female with multiple medical issues and congestive heart failure. She was admitted with increasing shortness of breath and exacerbation of congestive heart failure. PHYSICAL EXAMINATION: Please see the dictated note. PERTINENT LABORATORY AND X-RAY STUDIES: Her admission hemoglobin was 10.5 g/dL with a white count of 9900. Electrolytes showed stable creatinine of 1.3 mg%, nonfasting blood sugar obtained was 111, potassium 4.2 mEq. Serology negative for coronavirus. COURSE IN THE HOSPITAL: The patient was admitted. She received increased doses of Lasix along with fluid restriction, daily weights and marked improvement. She diuresed well. Lungs were clear and she had adequate oxygen saturation on room air. By the fourth hospital day, her vital signs were stable, lungs were clear, she was ready for discharge. At this time, I wrote scripts for Lasix 80 mg p.o. q.a.m., K-Dur 20 mEq p.o. daily, along with her amlodipine, Eliquis, ascorbic acid, aspirin, Lipitor, Coreg, Voltaren gel, hydrocodone p.r.n., insulin, lisinopril, metformin, omeprazole, Ranexa and Ambien, doses unchanged. Her prognosis is guarded. She remains a full code. She will follow up with the surgeons from [place] as scheduled and I recommended followup visit with Dr. Francis in 2 weeks' time to recheck electrolytes. The patient was then discharged from our hospital in stable condition with explicit drug and followup care. Total discharge time spent 41 minutes. NAVNEET/ALLYN DR: Julia TID: [id number] CC: Hasmukh Francis MD
== END 2021-11-09 16:02 | disposition home or self-care (01) | DRG 291 ==
LOC: ER 21:36 → 1 SOUTH 11-07 00:40
PROVIDERS: ADMIT Hospitalist; ATTEND Hospitalist
DX: I11.0 Hypertensive heart disease with heart failure (principal); I50.23 Acute on chronic systolic (congestive) heart failure; D63.8 Anemia in other chronic diseases classified elsewhere; E11.51 Type 2 diabetes mellitus with diabetic peripheral angiopathy without gangrene; F01.50 Vascular dementia, unspecified severity, without behavioral disturbance, psychotic disturbance, mood disturbance, and anxiety; I25.10 Atherosclerotic heart disease of native coronary artery without angina pectoris; I25.2 Old myocardial infarction; J44.9 Chronic obstructive pulmonary disease, unspecified; K52.9 Noninfective gastroenteritis and colitis, unspecified; W54.0XXA Bitten by dog, initial encounter; Z79.4 Long term (current) use of insulin; Z79.899 Other long term (current) drug therapy; Z87.891 Personal history of nicotine dependence; Z89.511 Acquired absence of right leg below knee; Z95.1 Presence of aortocoronary bypass graft; M19.90 Unspecified osteoarthritis, unspecified site; Z20.822 Contact with and (suspected) exposure to COVID-19
CPT/HCPCS: 36415; 36600; 71275; 74177; 80048; 80053; 81001; 82803; 82947; 83605; 83735; 83880; 84484; 85025; 85610; 85730; 87040; 87426; 93005; J1815; J1940; J1956; J2270; J2405; Q9967; U0003; 99285-25